=== PATIENT | female | born 1985 | race Caucasian/White ===

== ENCOUNTER → 2020-06-16 | Outpatient (CLI) | payer MEDICAID, OTHER ==
--- NOTE | 2020-06-16 11:58 | KCIC ---
Bilateral diagnostic digital mammograms: Reason for examination: Bilateral lateral breast pain, left greater than right for one year. Baseline exam. Interpretation was made with the benefit of CAD. The skin and nipples show no abnormalities. No abnormal axillary lymph nodes are seen. The breast par enchyma is extremely dense. (Breast density: Category D.) There is some mild asymmetry posteriorly in the upper outer quadrant of the right breast. There is also suggestion of small nodular densities po sterior inferiorly in the left breast seen on oblique view approximately 7 cm from the nipple. Furthe r evaluation with ultrasound will follow. No suspicious calcifications are seen. Impression: Dense breasts with some asymmetric parenchyma in the upper outer quadrant of the right breast and sub tle small circumscribed nodule inferiorly around the 6:00 B position of the left breast. Ultrasound t o follow. Your patient's mammogram demonstrates that she has dense breast tissue (breast density category C or D), which could hide abnormalities, and if she has other risk factors for breast cancer that have bee n identified, she might benefit from supplemental screening tests that may be suggested by you as her ordering physician. Dense breast tissue, in and of itself, is a relatively common condition. Therefo re, this information is not provided to cause undue concern, but rather to raise your awareness and t o promote discussion with your patient regarding the presence of other risk factors, in addition to d ense breast tissue. Your patient's mammography results will be sent to her. BI-RAD Category 0: Incomplete. Needs additional imaging evaluation. Bilateral breast ultrasound: Bilateral whole breast ultrasound including evaluation of all 4 quadrants and the retroareolar and ax illary regions of both breasts was performed. In the right breast at the 10:00 position 2 cm from the nipple, there is a 6.5 mm circumscribed nodul e in parallel orientation consistent with a small cyst. There is some ductal ectasia in the retroareo lar position. No abnormal appearing lymph nodes are seen in the right axilla. In the left breast at the 6:00 position 5 cm from the nipple, there is a small 9 mm hypoechoic circum scribed lesion with a fibrocystic appearance. No suspicious nodules are seen. There is some ductal ec yoselin in the retroareolar position. No abnormal appearing lymph nodes are seen in the left axilla. IMPRESSION: Small 6.5 mm cystic-appearing lesion at the 10:00 position of the right breast. 9 mm fibrocystic nodule at the 6:00 position of the left breast. Recommend 6 month follow-up with ultrasound. BI-RADS Category 3: Probably Benign. "Our facility is accredited by the [employer] Mammography [employer]." This patient's information has been entered into a reminder system for the patient to be notified wit h the results of her examination and a target date for the next mammogram. Electronically signed by: Aubree Mcpherson MD (06/16/2020 11:56 AM) [id number]
== END ==
LOC: KCIC MAMMO 07:58
PROVIDERS: ATTEND Family Medicine
DX: N63.11 Unspecified lump in the right breast, upper outer quadrant (principal); N60.41 Mammary duct ectasia of right breast; N64.4 Mastodynia
CPT/HCPCS: 76641; 77066

== ENCOUNTER → 2020-11-25 | Outpatient (CLI) | payer OTHER ==
--- NOTE | 2020-11-25 13:12 | KCIC ---
Bilateral breast ultrasound: Reason for examination: Follow-up nodules. Comparison is made to previous study dated 06/16/2020. Ultrasound examination of the breasts and axilla was performed bilaterally. The right breast continues to show some ductal ectasia in the retroareolar position. At the 10:00 pos ition 2 cm from the nipple, there continues to be a 5.9 mm hypoechoic fibrocystic type lesion which a ppears be slightly smaller. No abnormal appearing lymph nodes are seen in the right axilla. In the left breast, there continues to be a 9.4 mm hypoechoic fibrocystic type lesion septation which appears to be stable. There is ductal ectasia in the retroareolar position. No abnormal appearing ly mph nodes are seen in the left axilla. IMPRESSION: Stable fibrocystic lesions seen bilaterally. No suspicious abnormality seen. Recommend continued ultr asound follow-up in 6 months which can be performed at the time of bilateral mammograms. BI-RADS Category 3: Probably Benign. "Our facility is accredited by the [employer] Mammography [employer]." This patient's information has been entered into a reminder system for the patient to be notified wit h the results of her examination and a target date for the next mammogram. Electronically signed by: Aubree Mcpherson MD (11/25/2020 1:10 PM) [email or web address]
== END ==
LOC: KCIC US 13:34
PROVIDERS: ATTEND Family Medicine
DX: N60.41 Mammary duct ectasia of right breast (principal); N64.4 Mastodynia
CPT/HCPCS: 76641

== ENCOUNTER → 2021-05-26 | Outpatient (CLI) | payer OTHER ==
[2021-05-27 15:18] LABS: ALBUM 3.6 g/dL (2.9-4.4); ALPHA 1 0.3 g/dL (0.0-0.4); ALPHA 2 0.8 g/dL (0.4-1.0); BETA 1.2 g/dL (0.7-1.3); GAMMA 1.3 g/dL (0.4-1.8); PROTEIN TOTAL 7.1 g/dL (6.0-8.5)
[2021-05-27 21:10] LABS: ANA INTERP Negative (.)
== END ==
LOC: LAB 10:04
PROVIDERS: ATTEND Nurse Practitioner Family
DX: R53.82 Chronic fatigue, unspecified (principal)
CPT/HCPCS: 36415; 82607; 82746; 84165; 84443; 85651; 86038; 86140

== ENCOUNTER → 2021-06-06 | Outpatient (CLI) | payer OTHER ==
--- NOTE | 2021-06-06 14:42 | KCIC ---
EXAM: Brain MRI without contrast. HISTORY: Migraines. TECHNIQUE: Multiplanar, multisequence magnetic resonance imaging of the brain was performed without c ontrast. COMPARISON: None. FINDINGS: There is no restricted diffusion to suggest acute or subacute infarction. There is no susce ptibility effect to suggest hemorrhage. There is no mass effect or midline shift. There is no hydroce phalus. There is no suspicious white matter lesion. The orbits, paranasal sinuses mastoid air cells a re unremarkable. There are normal flow voids within the cerebral vessels. There is no suspicious calv arial lesion. IMPRESSION: No acute intracranial finding. Electronically signed by: Ana Kingston MD (06/06/2021 2:39 PM) [id number]
--- NOTE | 2021-06-06 16:03 | KCIC ---
EXAM: Lumbar spine MRI without contrast. HISTORY: Back pain. Radiculopathy. TECHNIQUE: Multiplanar, multisequence magnetic resonance imaging of the lumbar spine was performed wi thout contrast. COMPARISON: None. FINDINGS: There is 5 mm grade 1 anterolisthesis of L5 on S1. There may be pars defects at this level. There is slight disc desiccation at L3-L4 and L5-S1. There is no suspicious osseous lesion. There is no acute or subacute fracture. There are small lower thoracic and upper lumbar endplate Schmorl's no evan. The conus terminates at L1. At L1-L2, L2-L3, L3-L4 and L4-5, there is no stenosis. At L5-S1, there are bilateral foraminal to extraforaminal disc osteophyte complexes superimposed on a disc bulge and endplate remodeling. There is grade 1 anterolisthesis. There is abutment or near abut ment the exiting L5 nerve root without significant foraminal or central canal stenosis. IMPRESSION: 1. Grade 1 anterolisthesis with suspected pars defects and degenerative change at L5-S1. There is abu tment or near abutment the exiting L5 nerve root at this level, without significant stenosis. 2. No acute finding. Electronically signed by: Ana Kingston MD (06/06/2021 4:01 PM) [id number]
== END ==
LOC: KCIC MRI 13:36
PROVIDERS: ATTEND Nurse Practitioner Family
DX: M43.17 Spondylolisthesis, lumbosacral region (principal); M25.78 Osteophyte, vertebrae; M51.27 Other intervertebral disc displacement, lumbosacral region; G43.909 Migraine, unspecified, not intractable, without status migrainosus; R53.83 Other fatigue; R29.898 Other symptoms and signs involving the musculoskeletal system; R20.0 Anesthesia of skin
CPT/HCPCS: 70551; 72148